=== PATIENT | male | born 1985 | race Caucasian/White ===

== ENCOUNTER 2024-05-09 09:13 | Emergency (ER) | payer OTHER ==
[~2024-05-09] VITALS: Ht 175.3 cm; Wt 84.0 kg
[2024-05-09] MEDS: LIDOCAINE 1% MDV 20ML VIAL SC ONE (10:05)
[2024-05-09 11:09] VITALS: BP 133/71; TEMP 98.8; O2SAT 98
== END 2024-05-09 11:12 | disposition home or self-care (01) ==
LOC: M ED 09:13
DX: S01.111A Laceration without foreign body of right eyelid and periocular area, initial encounter (principal); Y92.019 Unspecified place in single-family (private) house as the place of occurrence of the external cause; Y93.9 Activity, unspecified; Y99.9 Unspecified external cause status; W00.0XXA Fall on same level due to ice and snow, initial encounter; F10.10 Alcohol abuse, uncomplicated

== ENCOUNTER → 2024-09-16 | Outpatient (CLI) | payer OTHER | LOC: M RAD 08:53 | PROVIDERS: ATTEND Physician Assistant | DX: N50.811 Right testicular pain (principal) ==

== ENCOUNTER → 2025-04-26 | Outpatient (CLI) | payer OTHER | LOC: M RAD 08:42 | PROVIDERS: ATTEND Nurse Practitioner Family | DX: N50.3 Cyst of epididymis (principal) ==